=== PATIENT | female | born 1995 | race Caucasian/White ===

== ENCOUNTER 2017-08-01 14:51 | Emergency (ER) | payer OTHER, MEDICAID | END 2017-08-01 15:16 | disposition home or self-care (01) | LOC: E/R 15:16 | DX: J02.9 Acute pharyngitis, unspecified (principal) | CPT/HCPCS: 99283; Z7502 ==

== ENCOUNTER 2017-08-05 17:07 | Emergency (ER) | payer OTHER | END 2017-08-05 17:36 | disposition home or self-care (01) | LOC: E/R 17:07 | DX: J06.9 Acute upper respiratory infection, unspecified (principal) | CPT/HCPCS: 99283; Z7502 ==

== ENCOUNTER 2018-05-02 14:30 | Emergency (ER) | payer OTHER ==
[2018-05-02 15:47] LABS: URINE BLOOD (Dip) POC 2+ (NEGATIVE); URINE GLUCOSE (Dip) POC Negative (NEGATIVE); URINE KETONES (Dip) POC 4+ (NEGATIVE); URINE LEUKOCYTE EST (Dip) POC Negative (NEGATIVE); URINE NITRITE (Dip) POC Negative (NEGATIVE); URINE TOTAL PROTEIN POC 1+ (NEGATIVE)
[2018-05-02] MEDS: DIPHENHYDRAMINE 25 MG CAP PO (15:54)
[2018-05-02] MEDS: ONDANSETRON (ODT) 4 MG TAB ODT (15:54)
== END 2018-05-02 17:12 | disposition home or self-care (01) ==
LOC: FTE 14:30
DX: R10.84 Generalized abdominal pain (principal); R11.2 Nausea with vomiting, unspecified
CPT/HCPCS: 81003; 81025; 87400; 99283